=== PATIENT | female | born 1950 | race Caucasian/White ===

== ENCOUNTER 2016-06-06 12:20 | Outpatient (CLI) | payer OTHER ==
[~2016-06-06 12:20] MED LIST: ASPIRIN EC325 MG PO; ASPIRIN325 MG PO; NORCO1 TA1 PO; VICODIN EQUIVAL1 TAB PO; VISTARIL25 MG PO; [UNRECOGNIZED DRUG - OTHER] OP
--- NOTE | 2016-06-06 12:44 | DIAGNOSTIC IMAGING REPORT ---
PROCEDURE: XR CHEST 2 VIEW INDICATION: COUGH TECHNIQUE: PA and lateral views. COMPARISON: Chest 02/13/2015 FINDINGS: Lungs are clear. Heart and mediastinum are normal. Thorax is normal. IMPRESSION: 1. Negative chest. 2. Results were called to Karyn Vasquez at 12:30 p.m.
== END 2016-06-06 23:00 ==
LOC: XR SRH 12:20
DX: R05 Cough (principal)

== ENCOUNTER 2016-10-06 13:44 | Outpatient (CLI) | payer OTHER ==
--- NOTE | 2016-10-06 14:44 | DIAGNOSTIC IMAGING REPORT ---
PROCEDURE: CT LUMBOSACRAL FACET/NERVE INJ CLINICAL INDICATION: Right back pain. Arthritis. TECHNIQUE: Informed consent was obtained and the patient was advised of the usual risks and complications, including infection, bleeding, and allergy. Prone position. COMPARISON: Compared to CT guided right L5-S1 facet joint injection on 12/31/2015. FINDINGS: Preliminary CT images demonstrate moderate arthritic changes of the right L5-S1 facet joint Following sterile preparation and 1% lidocaine local anesthetic, CT guidance was utilized to place a 22-gauge spinal needle in the posterior aspect of the right L5-S1 facet joint. A 1.1 mL solution (1 mL 40 mg/mL Kenalog, 0.1 mL 1% lidocaine) was infused into the joint, and the needle was withdrawn. The patient was instructed to resume routine activity the following day and to keep track of symptoms. IMPRESSION: 1. Successful CT -guided therapeutic injection of the right L5-S1 facet joint. All CT scans at this facility use dose modulation, iterative reconstruction, and/or weight-based dosing when appropriate to reduce radiation dose to as low as reasonably achievable.
== END 2016-10-06 23:00 ==
LOC: CT SRH 13:44
PROC: 3E0T3BZ Introduction of Anesthetic Agent into Peripheral Nerves and Plexi, Percutaneous Approach (ICD-10-PCS; principal; 2016-10-06)
DX: M46.1 Sacroiliitis, not elsewhere classified (principal)
CPT/HCPCS: 82445